=== PATIENT | male | born 1965 | race Caucasian/White ===

== ENCOUNTER 2017-01-24 13:28 | Emergency (ER) | payer OTHER ==
[2017-01-24] MEDS ORDERED: HYDROmorphONE/DILAUDID 1 MG/ML SYR ONE (13:40)
[2017-01-24] MEDS ORDERED: ONDANSETRON 4 MG/2 ML VIAL ONE (13:40)
--- NOTE | 2017-01-24 13:49 | EDPHY ---
H & P Stated Complaint: right flank pain Time Seen by Provider: 01/24/17 13:39 HPI/ROS: CHIEF COMPLAINT: right flank pain HISTORY OF PRESENT ILLNESS: 52-year-old male presents emergency department complaining of severe right flank pain that started after eating breakfast this morning. He states his pain has progressed as the day has gone on. He reports nausea and vomiting, no diarrhea. He reports the pain radiates around to his front into his groin. He denies history of kidney stone though reports his father has kidney stones. Patient denies hematuria, no difficulty urinating. No chest pain or shortness of breath. Patient reports his pain is severe in nature, constant and sharp. No alleviating factors. REVIEW OF SYSTEMS: A comprehensive 10 point review of systems is otherwise negative aside from elements mentioned in the history of present illness. Source: Patient Exam Limitations: No limitations - Physical Exam Exam: Physical Exam Gen: Alert and Oriented, grimacing HEENT: PERRL, moist mucous membranes NECK: no meningismus CV: regular rate and regular rhythm PULM: CTAB, no wheezes ABDOMEN: soft, non tender to palpation, BS present BACK: Right CVA tenderness NEURO: Neurologically grossly intact EXTREMITIES: normal appearing SKIN: no rash or break in skin on exposed skin PSYCH: answers questions appropriately. Constitutional: Initial Vital Signs Temperature (C) 36.9 C 01/24/17 13:47 Heart Rate 83 01/24/17 13:47 Respiratory Rate 16 01/24/17 13:47 Blood Pressure 123/92 H 01/24/17 13:47 O2 Sat (%) 97 01/24/17 13:47 O2 Delivery Mode Room Air Allergies/Adverse Reactions: No Known Allergies Allergy (Unverified 01/24/17 13:51) Home Medications: Medication Instructions Recorded Ondansetron Odt [Zofran Odt] 4 mg PO Q6-8PRN PRN #8 tab 01/24/17 Tamsulosin HCl [Flomax 0.4 MG (*)] 0.4 mg PO DAILY #7 cap 01/24/17 oxyCODONE/APAP 5/325 [Percocet 1 - 2 tab PO Q6H PRN #12 tab 01/24/17 5/325] Medical Decision Making - Diagnostics Imaging: CT abdomen pelvis Impression: 2 mm calculus in the distal right ureter with mild hydronephrosis and hydroureter. Results called and discussed with Tomasa Hernandez NP on January 24, 2017 at 1426 hours. Dictated By: Gilson Wilkins MD ED Course/Re-evaluation: IV established, i-STAT and urinalysis ordered. Patient is given 1 mg of Dilaudid IV and 4 mg of Zofran. I-STAT reveals a creatinine of 1.1. Patient is given 15 mg of IV Toradol. CT abdomen pelvis without IV contrast has been ordered. 3pm-patient reports his pain is much improved. He reports a mild ache to his right flank. Urinalysis pending. CT scan reveals a 2 mm stone in his right UVJ with mild hydronephrosis. 340pm-urinalysis shows 50-182 red blood cells, no white blood cells. I am not concerned for an infected stone. Patient will be discharged home with pain medications. He agrees to return for any worsening symptoms. Patient is comfortable with this plan. Differential Diagnosis: The differential diagnosis for the patient's flank pain included but was not limited to musculoskeletal causes, kidney stone, pyelonephritis, shingles, diverticulitis, appendicitis, and aortic aneurysm. - Data Points Laboratory Results: 01/24/17 01/24/17 15:20 13:43 POC Hgb 15.3 gm/dL gm/dL (14.5-17.3) POC Hct 45 % % (42.8-50.6) POC Sodium 139 mEq/L mEq/L (134-144) POC Potassium 3.7 mEq/L mEq/L (3.3-5.0) POC Chloride 103 mEq/L mEq/L (96-108) POC BUN 16 mg/dL mg/dL (7-23) POC Creatinine 1.2 mg/dL mg/dL (0.8-1.5) POC Glucose 140 mg/dL H mg/dL (70-100) Urine Color YELLOW Urine Appearance HAZY Urine pH 5.0 (5.0-7.5) Ur Specific [place] 1.028 (1.002-1.030) Urine Protein NEGATIVE (NEGATIVE) Urine Ketones 1+ H (NEGATIVE) Urine Blood 3+ H (NEGATIVE) Urine Nitrate NEGATIVE (NEGATIVE) Urine Bilirubin NEGATIVE (NEGATIVE) Urine Urobilinogen NEGATIVE EU EU (0.2-1.0) Ur Leukocyte Esterase NEGATIVE (NEGATIVE) Urine RBC 50-182 /hpf H /hpf (0-3) Urine WBC 1-3 /hpf /hpf (0-3) Ur Epithelial Cells NONE SEEN /lpf /lpf (NONE-1+) Urine Mucus 2+ /lpf H /lpf (NONE-1+) Ur Culture Indicated? NOT INDICATED (NI) Urine Glucose NEGATIVE (NEGATIVE) Medications Given: Discontinued Medications Hydromorphone HCl (Dilaudid) 1 mg IVP EDNOW ONE Stop: 01/24/17 13:53 Last Admin: 01/24/17 13:53 Dose: 1 mg Ketorolac Tromethamine (Toradol) 15 mg IVP EDNOW ONE Stop: 01/24/17 13:52 Last Admin: 01/24/17 13:58 Dose: 15 mg Ondansetron HCl (Zofran) 4 mg IVP EDNOW ONE Stop: 01/24/17 13:53 Last Admin: 01/24/17 13:54 Dose: 4 mg Point of Care Test Results: 01/24/17 13:43 POC Sodium 139 POC Potassium 3.7 POC Chloride 103 POC BUN 16 POC Creatinine 1.2 POC Glucose 140 H Departure - Departure Disposition: Home, Routine, Self-Care Clinical Impression: Ureteral calculi Condition: Good Instructions: Kidney Stones (ED) Additional Instructions: Kidney stone: Take Percocet as needed for severe pain. Use Zofran as needed for nausea. Take ibuprofen 600 mg every 6-8 hours as needed for moderate pain. This will also help with inflammation. Take Flomax as directed. Followup with urology as directed for symptoms not improving. Strain urine. Return to the emergency department if you have worsening pain, fevers, persistent vomiting, or other concerns. Referrals: [facility] ,. [Edm Groups for Call Sched] - As per Instructions Prescriptions: Ondansetron Odt [Zofran Odt] 4 mg PO Q6-8PRN PRN #8 tab PRN Reason: Nausea/Vomiting, Can'T Take Po oxyCODONE/APAP 5/325 [Percocet 5/325] 1 - 2 tab PO Q6H PRN #12 tab PRN Reason: Pain, Severe Tamsulosin HCl [Flomax 0.4 MG (*)] 0.4 mg PO DAILY #7 cap
[2017-01-24 13:50] VITALS: RESP 16; TEMP 98.4
[2017-01-24] MEDS ORDERED: KETOROLAC 15 MG/1 ML SDV IVP ONE (13:51)
[2017-01-24] MEDS ORDERED: ONDANSETRON 4 MG/2 ML VIAL IVP ONE (13:52)
[2017-01-24] MEDS ORDERED: HYDROmorphONE/DILAUDID 1 MG/ML SYR IVP ONE (13:52)
[2017-01-24 15:33] LABS: COLOR YELLOW; LEUKOCYTE ESTERASE,URINE NEGATIVE (NEGATIVE); NITRITE,URINE NEGATIVE (NEGATIVE)
[2017-01-24 15:39] LABS: MUCUS 2+ /lpf (NONE-1+); RBC,URINE 50-182 /hpf (0-3)
[2017-01-24 15:55] VITALS: BP 136/89; PULSE 76; O2SAT 94
== END 2017-01-24 15:54 | disposition home or self-care (01) ==
DX: N20.1 Calculus of ureter (principal)
CPT/HCPCS: 82947-QW; 96374; J1170; J1885; J2405